=== PATIENT | female | born 1970 | race Asian ===

== ENCOUNTER 2020-07-08 21:53 | Emergency (ER) | payer OTHER ==
[~2020-07-08] VITALS: Ht 152.4 cm; Wt 47.7 kg
[2020-07-08 21:56] VITALS: Ht 152.4 cm; Wt 47.7 kg
[2020-07-08 23:13] VITALS: BP 144/96
== END 2020-07-08 23:13 | disposition home or self-care (01) ==
LOC: ED 21:53
DX: S62.617A Displaced fracture of proximal phalanx of left little finger, initial encounter for closed fracture (principal); Z88.2 Allergy status to sulfonamides; W01.198A Fall on same level from slipping, tripping and stumbling with subsequent striking against other object, initial encounter; Y93.89 Activity, other specified; Y92.89 Other specified places as the place of occurrence of the external cause; Y99.8 Other external cause status
CPT/HCPCS: A4570; Q0092